=== PATIENT | male | born 1940 | race Caucasian/White ===

== ENCOUNTER 2020-01-06 08:26 | Day surgery (SDC) | payer OTHER ==
[2020-01-01 10:22] VITALS: BMI 27.8
[2020-01-06] MEDS ORDERED: CYCLOPENTOLATE HCL 1% OPHTH SOLN 2 ML BOTTLE ONE (08:41)
[2020-01-06] MEDS ORDERED: OFLOXACIN 0.3% OPHTHALMIC SOLUTION 5 ML BOTTLE ONE (08:42)
[2020-01-06] MEDS ORDERED: KETOROLAC TROMETHAMINE 0.5% EYE DROP 1 DROP DROPS ONE (08:42)
[2020-01-06] MEDS ORDERED: PHENYLEPHRINE 2.5% OPHTH SOLN 15 ML BOTTLE ONE (08:42)
[2020-01-06] MEDS ORDERED: TROPICAMIDE 1% OPHTH SOLN 15 ML BOTTLE ONE (08:42)
[2020-01-06] MEDS: CYCLOPENTOLATE HCL 1% OPHTH SOLN 2 ML BOTTLE OS SCH ×5 (08:55→09:15)
[2020-01-06] MEDS: KETOROLAC TROMETHAMINE 0.5% EYE DROP 1 DROP DROPS OS SCH ×5 (08:55→09:15)
[2020-01-06] MEDS: OFLOXACIN 0.3% OPHTHALMIC SOLUTION 5 ML BOTTLE OS SCH ×5 (08:55→09:15)
[2020-01-06] MEDS: PHENYLEPHRINE 2.5% OPHTH SOLN 15 ML BOTTLE OS SCH ×5 (08:55→09:15)
[2020-01-06] MEDS: TROPICAMIDE 1% OPHTH SOLN 15 ML BOTTLE OS SCH ×5 (08:55→09:15)
[2020-01-06] MEDS ORDERED: EPI-SHUGARCAINE (EPINEPHRINE 0.025% & LIDOCAINE-PF 0.75%) 4ML ONE (09:47)
[2020-01-06] MEDS ORDERED: BETAXOLOL HCL 0.25% OPHTHALMIC 10 ML DROPSBTL ONE (09:47)
[2020-01-06] MEDS ORDERED: BACITRACIN/POLYMYXIN OPH OINT 3.5 GM TUBE ONE (09:47)
[2020-01-06] MEDS ORDERED: NEO/POLYMYX B SULF/DEXAMETH OPHTHALMIC 5ML BOTTLE ONE (09:48)
[2020-01-06] MEDS ORDERED: POVIDONE-IODINE 5% OPHTHALMIC PREP 30 ML SOLUTION ONE (09:48)
[2020-01-06] MEDS ORDERED: ACETAMINOPHEN 325 MG TABLET (FP) PO PRN (09:54)
[2020-01-06] MEDS ORDERED: MIDAZOLAM HCL 2 MG/2 ML SINGLE DOSE VIAL ONE (10:16)
[2020-01-06 11:41] VITALS: TEMP 97.4
[2020-01-06 11:52] VITALS: BP 134/76; PULSE 76
--- NOTE | 2020-01-07 11:07 | OP ---
DATE OF OPERATION: 01/06/2020 PREOPERATIVE DIAGNOSIS: Cataract, left eye, hypermature, left eye. POSTOPERATIVE DIAGNOSIS: Cataract, hypermature, left eye. SURGEON: Jordana Levine MD BASE FILLER: Jordana Levine MD ANESTHESIA: Topical with sedation. ESTIMATED BLOOD LOSS: Less than 1 mL COMPLICATIONS: None. SPECIMENS: None. PROCEDURE: The patient was identified in the holding area. After all the risks, benefits, and alternatives were explained to the patient, informed consent was obtained. The left eye was marked with a marking pen. The patient then entered the operating room on an eye stretcher. After a formal time-out was performed, topical tetracaine eye drops were instilled onto the left eye. The patient was then instructed to sit up and look straight ahead and the cardinal axis of astigmatism were marked using a Toric bubble marker and a Toric marking pen. The patient was then instructed to lay back down and the left eye was prepped and draped in the usual sterile fashion. An eyelid speculum was placed beneath the eyelids of the left eye. Then the axis of astigmatism was marked onto the cornea, which was noted to be 180 degrees. This was done using a Toric dilator and a Toric bubble marker and a Toric marking pen. Then, an inferotemporal paracentesis incision was created using a 15-degree blade. Preservative-free epinephrine and preservative-free lidocaine was then injected into the anterior chamber. Viscoelastic was then injected into the anterior chamber. A 2.4-mm keratome blade was then used to make an superotemporal incision. A 360-degree continuous curvilinear capsulorrhexis was then created using bent cystotome and Utrata forceps. Hydrodissection was performed using balanced saline solution on a cannula. Phacoemulsification was introduced to disassemble and remove the nucleus in its entirety. Irrigation/aspiration was then used to remove any remaining cortical material from the eye. The capsular bag was reformed using viscoelastic. An Kirk model [id number] with a power of 25.0 diopters, serial number [id number], was inspected and found to be defect-free and injected into the capsular bag. Irrigation/aspiration was then used to remove any remaining viscoelastic from the eye including posterior to the optic. The intraocular lens was rotated so that the axis of astigmatism on the cornea matched the axis of astigmatism on the optic, which was noted to be 180 degrees. All wounds were hydrated with balanced saline solution and noted to be watertight. There was a red reflex present. The lens was perfectly centered in the capsular bag and the anterior chamber was deep and the eye had adequate pressure. Topical antibiotic eye drops and ointment were then administered to the left eye. The eyelid speculum was removed from the left eye. The left eye was shielded. The patient tolerated the procedure well and left the operating room in stable condition to follow up in the eye clinic tomorrow morning at 10:00. JORDANA LEVINE M.D. [id number]
== END 2020-01-06 11:55 | disposition home or self-care (01) ==
LOC: FASU 08:26 → EDBD 10:00 → FASU 11:55
PROVIDERS: ATTEND Ophthalmology
PROC: 08RK3JZ Replacement of Left Lens with Synthetic Substitute, Percutaneous Approach (ICD-10-PCS; principal; 2020-01-06 10:32)
DX: H25.22 Age-related cataract, morgagnian type, left eye (principal)